=== PATIENT | female | born 1980 | race Caucasian/White ===

== ENCOUNTER 2018-03-10 16:21 | Emergency (ER) | payer OTHER ==
[~2018-03-10] VITALS: Ht 175.3 cm; Wt 77.1 kg
[2018-03-10] MEDS ORDERED: ALBUTEROL1.25 MG/3 (16:59)
== END 2018-03-10 22:53 | disposition home or self-care (01) ==
LOC: ER 16:21
DX: J20.9 Acute bronchitis, unspecified (principal)

== ENCOUNTER 2021-01-28 05:10 | Day surgery (SDC) | payer OTHER ==
[~2021-01-28 05:10] MED LIST: ALBUTEROL1.25 MG/3
== END 2021-01-28 12:05 | disposition home or self-care (01) ==
LOC: CIR.AMB 05:10
PROVIDERS: ATTEND Specialist
DX: K80.10 Calculus of gallbladder with chronic cholecystitis without obstruction (principal); Z20.822 Contact with and (suspected) exposure to COVID-19